=== PATIENT | female | born 1945 | race Caucasian/White ===

== ENCOUNTER → 2016-10-27 | Outpatient (CLI) | payer OTHER ==
[~2016-10-27] MED LIST: MEDLIST
== END | disposition home or self-care (01) ==
LOC: C.LABSPEC 10-07 13:49
PROVIDERS: ATTEND Internal Medicine
DX: Z12.11 Encounter for screening for malignant neoplasm of colon (principal)

== ENCOUNTER → 2016-11-01 | Outpatient (CLI) | payer OTHER ==
[2016-11-01 13:08] LABS: BASO % 0.7 %; BASO ABS # 0.04 K/uL (0-0.2); COMPLETE YES; HEMATOCRIT 38.6 % (37-47); IG% 1.3 %; LYMPH % 25.3 %; LYMPH ABS # 1.55 K/uL (1.2-3.4); MEAN CELL VOLUME 92.6 fL (80-100); MEAN CORPUSCULAR HEMOGLOBIN 31.2 pg (25-34); MEAN CORPUSCULAR HGB CONC 33.7 g/dl (32-36); MEAN PLATELET VOLUME 9.5 fL (7.4-10.4); MONO % 10.6 %; NEUT % 60.1 %; PLATELET COUNT 261 K/uL (130-400); RED BLOOD COUNT 4.17 M/uL (4.2-5.4); WHITE BLOOD COUNT 6.12 K/uL (4.8-10.8)
[2016-11-01 13:53] LABS: ALT/SGPT 27 U/L (12-78); BLOOD UREA NITROGEN 18 mg/dl (7-18); BUN/CREATININE RATIO 22.9 (10-20); CALCIUM 9.1 mg/dl (8.5-10.1); CARBON DIOXIDE 24 mmol/L (21-32); CHLORIDE 106 mmol/L (98-107); GLUCOSE 91 mg/dl (70-99); POTASSIUM 4.3 mmol/L (3.5-5.1); SODIUM 140 mmol/L (136-145)
[2016-11-01 14:03] LABS: ALB/GLOB RATIO 1.3 (0.9-2); ALKALINE PHOSPHATASE 59 U/L (45-117); AST/SGOT 18 U/L (15-37); THYROID STIMULATING HORMONE 0.631 uIu/ml (0.300-4.500)
[2016-11-06 12:15] LABS: PROGES(Patient ON DHEAS)** 0.4 ng/mL
--- NOTE | 2016-11-06 12:16 | CODING QUERY MEDICAL NECESSITY ---
SUPPORTING DIAGNOSIS NEEDED A supporting diagnosis is required for the test/procedure performed on this patient in order for us to be reimbursed by the patient's insurance. Please provide a supporting diagnosis for the following test/procedure listed below next to the test name along with your signature. *If there is no additional diagnosis for this patient that would support the following test/procedure please document that below next to the test/procedure. Test(s)/Procedure(s) that require a supporting diagnosis: * VITAMIN B-12 LEVEL DIAGNOSIS: * DOS: 11/01/16 Provider Signature: Date: Thank you Yumiko Elaine [facility] Information Management Once completed, please kindly fax back to [phone] For questions please call [phone]
== END | disposition home or self-care (01) ==
LOC: C.LAB1850 12:11
PROVIDERS: ATTEND Internal Medicine
DX: E03.9 Hypothyroidism, unspecified (principal); R42 Dizziness and giddiness; Z12.11 Encounter for screening for malignant neoplasm of colon; Z17.0 Estrogen receptor positive status [ER+]; C50.911 Malignant neoplasm of unspecified site of right female breast; R03.0 Elevated blood-pressure reading, without diagnosis of hypertension; M81.0 Age-related osteoporosis without current pathological fracture; R74.8 Abnormal levels of other serum enzymes

== ENCOUNTER → 2016-11-19 | Outpatient (CLI) | payer OTHER | END | disposition home or self-care (01) | LOC: C.MAMM 14:31 | PROVIDERS: ATTEND Internal Medicine | DX: M81.0 Age-related osteoporosis without current pathological fracture (principal); M85.89 Other specified disorders of bone density and structure, multiple sites ==

== ENCOUNTER 2017-03-29 13:41 | Emergency (ER) | payer OTHER ==
[~2017-03-29] VITALS: Ht 163.8 cm; Wt 67.5 kg
[2017-03-29 13:52] VITALS: TEMP 36.8; Ht 163.8 cm; Wt 67.5 kg
[2017-03-29] MEDS ORDERED: XYLOCAINE 1%/SOD BICARB 20 ML VIAL INFIL ONE (14:45)
[2017-03-29] MEDS ORDERED: DIPHTHERIA/TETANUS/PERTUSSIS 0.5 ML SYR/VIAL IM. ONE (14:45)
[2017-03-29 15:07] VITALS: BP 148/75; PULSE 69; O2SAT 98
--- NOTE | 2017-03-29 21:22 | EMERGENCY ROOM VISIT NOTE ---
ED Visit Note First contact with patient: 14:36 Chief Complaint: I cut my left leg. History of Present Illness: Ms. Goldsmith is a 71-year-old white female who ambulates into the ED complaining of a left lower leg laceration. Patient reports a proximally 45 minutes ago she accidentally cut her left lower leg with a broken mirror. Prior to coming to the ED she control bleeding and clean the wound with witch saskia and peroxide. She denies any associated symptoms with her laceration including pain and left lower leg weakness/numbness/tingling.. Review of Systems: As noted above in History of Present Illness. Past Medical History: Status post appendectomy, tonsillectomy, unspecified right breast surgery, unspecified right femur surgery. Current Medications: Patient denies. Allergies to Medications: Penicillin. Social History: Patient is not currently employed; she feels safe in her home environment; she denies tobacco use; she admits to alcohol use. Tetanus Immunization Status: Patient reports greater than 10 years. Physical Examination: Vital Signs: Date Time Temp Pulse Resp B/P (MAP) Pulse Ox O2 Delivery O2 Flow Rate FiO2 03/29/17 15:07 69 16 148/75 98 Room Air 03/29/17 13:52 36.8 79 16 182/83 96 Room Air GENERAL: 71-year-old female in no acute distress, nontoxic-appearing, afebrile and hemodynamically stable. NEUROLOGICAL: Awake, alert and oriented to person, place and time. Answering questions appropriately and following commands. Normal gait. Good hand eye coordination. No focal motor or sensory deficits. SKIN: Warm, dry and pink. Left Lower Leg: Over the lateral aspect of the left lower leg approximately 3-4 cm inferior to the knee joint line patient has a 3.2 cm full-thickness laceration. No active bleeding. LEFT LOWER EXTREMITY: No gross bony deformity. Soft tissue injury as noted above. Full range of motion in flexion and extension of the knee and pronation and supination of forearm against resistance. Throughout the leg and foot the skin was warm and pink and capillary refill is brisk. She is able to distinguish light sensations through all dermatomes of the leg and foot. ED Course: Patient is assessed as noted above. Patient's medication list was reviewed. Wound Repair: Complexity: Basic. Verbal consent was obtained after the risks and benefits were explained. The skin was prepped with betadine and a sterile field set. Wound edges of the wound was anesthetized with 3.5 ml buffered 1% lidocaine. The wound was explored for foreign bodies and none found. Copious irrigation was performed using sterile saline. With direct pressure the bleeding subsided. Debridement was not performed. The wound edges were approximated using 4-0 Ethilon with 6 simple interrupted sutures. Hemostasis and excellent approximation was achieved. Antibacterial ointment and a sterile dressing applied. No complications and the patient tolerated the procedure well. Patient was educated about tonight's findings and instructed on her treatment plan; she verbalizes understanding and agreement with this plan. Clinical Impression: Laceration of the left lower leg. Disposition: Patient discharged home in stable condition; prior to departure he was reassessed and subjectively reported she was still pain free. Plan: Comfort measures, wound care, and signs of infection were discussed with the patient. Patient was encouraged to follow-up with personal physician or return emergency department for signs of infection and/or suture removal in 10-12 days.
== END 2017-03-29 15:16 | disposition home or self-care (01) ==
LOC: C.EDB 13:43 → C.EDD 15:16
DX: S81.812A Laceration without foreign body, left lower leg, initial encounter (principal); W45.8XXA Other foreign body or object entering through skin, initial encounter; Z23 Encounter for immunization